=== PATIENT | female | born 1980 | race Caucasian/White ===

== ENCOUNTER 2021-02-02 15:44 | Emergency (ER) | payer OTHER, SELFPAY ==
[2021-02-02 15:46] VITALS: BP 126/78; PULSE 68; RESP 18; TEMP 36.8; O2SAT 97; BMI 26.6
--- NOTE | 2021-02-02 16:07 | US_ITS ---
PROCEDURE INFORMATION: Exam: US Pelvis, Transvaginal Exam date and time: 02/02/2021 4:07 PM Age: 40 years old Clinical indication: Prior surgery; Surgery date: 6+ months; Surgery type: Ablasion; Patient HX: Pelvic pain with abnormal uterine bleeding TECHNIQUE: Imaging protocol: Real-time transvaginal pelvic ultrasound with image documentation. Transvaginal imaging was used for better evaluation of the endometrium, adnexa, and/or cervix. COMPARISON: 1. ABDPELW/O CT ABD PELVIS W/O CONTRAST 02/07/2014 3:13 PM 2. No other comparison studies were made available at the time of interpretation. FINDINGS: Uterus/cervix: The uterus is anteverted and measures 7.5 x 4.1 x 4.5 cm. 1.3 x 0.4 x 0.9 cm and 1.3 x 0.6 x 1.0 cm anechoic structures without associated vascularity based on color Doppler imaging located in the lower uterine segment/cervix, likely reflecting nabothian cysts. The endometrium is normal in thickness, measuring 8.6 mm in thickness. Slightly heterogenous echotexture of the endometrium including anechoic foci, likely reflecting tiny cystic spaces. Right adnexa: The right ovary measures 2.7 x 1.3 x 1.9 cm and demonstrates ovarian follicles. Vascularity of the ovary is present based on color Doppler imaging. Left adnexa: The left ovary measures 2.5 x 1.2 x 1.9 cm and demonstrates ovarian follicles. Vascularity of the ovary is present based on color Doppler imaging. Urinary bladder: Empty urinary bladder, not evaluated on this ultrasound examination. Intraperitoneal space: No free fluid in the visualized field of view. IMPRESSION: Slightly heterogenous echotexture of the endometrium including anechoic foci, likely reflecting tiny cystic spaces. Pelvic ultrasound follow-up is recommended in 6-12 weeks. Other findings noted above. The interpretation of this study is based on the receipt of a total image number of 291.
--- NOTE | 2021-02-02 16:27 | [facility].EDGENADL ---
ED Disposition Clinical Impression: Abnormal uterine bleeding, Pelvic pain Disposition: Home, Self-Care Condition on Discharge: Good Additional Instructions: Return to the emergency department with any new, changing, or worsening symptoms. Follow-up with your APPLICATION DEVELOPMENT INTERN on Friday. Referrals: Carlos Charles MD [Primary Care Provider] - Arslan Talley MD [Staff Physician] - - Critical Care Critical Care Time: No Attestation: On 02/02/21, the high probability of a clinically significant, sudden or life threatening deterioration of the following system(s) required my full and direct attention, intervention and personal management. The time I documented below is in addition to time spent performing reported procedures but includes the following listed in this critical care notation. Medical Decision Making - Medical Records Medical records reviewed: Yes: I reviewed the patient's medical records. - Isac Inquiry Pt receiving controlled substance: No Vital Signs: 02/02/21 15:46 Temperature 98.3 F Temperature Source Oral Pulse Rate [Right Radial] 68 Respiratory Rate 18 Blood Pressure [Right Arm] 126/78 Blood Pressure Mean [Right Arm] 94 Blood Pressure Source [Right Arm] Automatic Cuff Blood Pressure Position [Right Arm] Sitting 02 Sat by Pulse Oximetry 97 Oxygen Delivery Method Room Air - Lab Data Lab Results 02/02/21 16:34: WBC 9.6, RBC 4.52, Hgb 13.6, Hct 40.3, MCV 89.3, MCH 30.2, MCHC 33.8, RDW 13.8, Plt Count 243, MPV 7.7, Neut % (Auto) 68.8, Lymph % (Auto) 22.9, [place] % (Auto) 5.3, Eos % (Auto) 2.3, Baso % (Auto) 0.6, Neut # (Auto) 6.6, Lymph # (Auto) 2.2, [place] # (Auto) 0.5, Eos # (Auto) 0.2, Baso # (Auto) 0.1 02/02/21 16:34: PT 10.7, INR 0.90, APTT 29.0 02/02/21 16:34: Sodium 142, Potassium 3.9, Chloride 109 H, Carbon Dioxide 26, Anion Gap 10.9, BUN 5 L, Creatinine 0.60, Estimated Creat Clear 146, Estimated GFR 112, Est GFR ( Amer) 135, Glucose 106 H, Calcium 8.8, Total Bilirubin 0.2, AST 25, ALT 28, Alkaline Phosphatase 76, Total Protein 7.7, Albumin 4.3, Globulin 3.4 H, Albumin/Globulin Ratio 1.3 02/02/21 16:34: Lactate 0.9 02/02/21 16:34: Serum HCG, Qual Negative Result diagrams: 02/02/21 16:34 02/02/21 16:34 Orders (Tests/Meds): ED MEDICATIONS Discontinued Medications Generic Name Dose Route Start Last Admin Trade Name Nj PRN Reason Stop Dose Admin Acetaminophen 1,000 mg 02/02/21 16:08 02/02/21 17:05 Acetaminophen 500mg Tab PO 02/02/21 16:09 1,000 mg ONCE ONE Administration Lactated Ringer's 1,000 mls @ 999 mls/hr 02/02/21 16:15 02/02/21 17:05 Lactated Ringer's 1000 Ml Bag IV 02/02/21 17:15 999 mls/hr .Q1H1M JADE Administration Morphine Sulfate 4 mg 02/02/21 16:08 02/02/21 16:41 Morphine 2mg/Ml Syringe IV 02/02/21 16:09 4 mg ONCE ONE Administration Ondansetron HCl 4 mg 02/02/21 16:41 02/02/21 16:42 Ondansetron 4mg/2ml Vial IV 02/02/21 16:42 4 mg ONCE ONE Administration ORDERS Category Date Time Status US transvaginal Stat Exams 02/02/21 16:07 Taken Medical Decision Narrative: Patient hemodynamically stable on arrival nontoxic appearance. Differential includes was not noted to , ectopic , uterine ablation, abnormal uterine bleeding. Given the patient's this exam plan obtain test, basic labs, CBC, CMP, transvaginal ultrasound and reassess. Patient's lab work-up grossly normal. No anemia. Negative test at this time. We obtained a transvaginal ultrasound. Afterwards I speak with the master technician. Patient had tiny cystic areas in the lower uterus but had a great flow to both ovaries with no cyst on either ovary. I am unsure of the exact cause of the patient's abnormal uterine bleeding at this time. I believe this likely could be due to her menstrual period although she did have an ablation 10 years ago. Patient is otherwise hemodynamically stable in the emergency department here and we
[2021-02-02 16:52] LABS: Potassium 3.9 mmoL/L (3.5-5.1); Sodium 142 mmol/L (136-145)
[2021-02-02 16:53] LABS: Basophils # 0.1 K/mm3 (0-0.2); Basophils % 0.6 % (0.1-2.0); Chloride 109 mmol/L (98-107); Eosinophils # 0.2 K/mm3 (0.0-0.4); Eosinophils % 2.3 % (0.1-12.0); Hematocrit 40.3 % (37.0-47.0); Hemoglobin 13.6 g/dL (12.2-16.2); Lymphocytes # 2.2 K/mm3 (0.7-4.5); Lymphocytes % 22.9 % (10-50); Mean Corpuscular HGB Conc 33.8 g/dL (31.8-35.4); Mean Corpuscular Hemoglobin 30.2 pg (27.0-31.2); Mean Corpuscular Volume 89.3 fl (81-99); Mean Platelet Volume 7.7 fl (7.4-10.4); Monocytes # 0.5 K/mm3 (0.1-1.0); Monocytes % 5.3 % (1.7-9.3); Neutrophils # 6.6 K/mm3 (1.8-7.8); Neutrophils % 68.8 % (37.0-80.0); Platelet Count 243 K/mm3 (142-424); Red Blood Count 4.52 M/mm3 (4.20-5.40); Red Cell Distribution Width 13.8 % (11.5-17.5); White Blood Count 9.6 K/mm3 (4.8-10.8)
[2021-02-02 16:55] LABS: Alanine Aminotransferase 28 U/L (12-78); Albumin Level 4.3 g/dl (3.5-5.0); Albumin/Globulin Ratio 1.3 (1.1-1.8); Alkaline Phosphatase 76 U/L (38-126); Anion Gap 10.9 mEq/L (5-15); Aspartate Amino Transferase 25 U/L (14-36); Bilirubin,Total 0.2 mg/dl (0.2-1.3); Blood Urea Nitrogen 5 mg/dl (7-17); Calcium 8.8 mg/dl (8.4-10.2); Carbon Dioxide 26 mmol/L (22.0-30.0); Creatinine Clearance Estimated 146 mL/min (50-200); Estimated Glomerular Filt Rate 112 ml/min (>60); GFR (African American) 135 ML/MIN (>60); Globulin 3.4 g/dL (1.3-3.2); Glucose 106 mg/dl (74-100); HCG Qualitative, Serum Negative (Negative); Lactic Acid 0.9 mmol/L (0.7-2.1); Total Protein,Serum 7.7 g/dl (6.3-8.2)
[2021-02-02 16:59] LABS: Prothrombin Time 10.7 seconds (10.1-12.5)
[2021-02-02 18:15] VITALS: BP 136/74; PULSE 72; RESP 16; TEMP 36.6; O2SAT 98
== END 2021-02-02 18:16 | disposition home or self-care (01) ==
PROVIDERS: Emergency Provider Emergency Medicine; PCP Family Medicine
DX: N93.8 Other specified abnormal uterine and vaginal bleeding (principal); R10.2 Pelvic and perineal pain; F41.9 Anxiety disorder, unspecified; F17.210 Nicotine dependence, cigarettes, uncomplicated
CPT/HCPCS: 76830; 80053; 83605; 84703; 85025; 85610; 85730; 96365; 96375; 99282; 99283; J2405

== ENCOUNTER 2025-04-20 15:27 | Emergency (ER) | payer OTHER, SELFPAY ==
[2025-04-20] VITALS (9 sets, daily range): BP systolic 94–150; BP diastolic 59–101; PULSE 57–79; RESP 11–20; TEMP 36.7–36.8; O2SAT 91–100; BMI 23.3
--- NOTE | 2025-04-20 15:28 | XR_ITS ---
PROCEDURE INFORMATION: Exam: XR Chest Exam date and time: 04/20/2025 3:57 PM Age: 44 years old Clinical indication: Shortness of breath; Additional info: SOA and cp TECHNIQUE: Imaging protocol: Radiologic exam of the chest. Views: 1 view. Total images: 1 COMPARISON: CR SHOULDCMLT XR shoulder LT min 2V 05/28/2018 9:56 AM FINDINGS: Lungs: Atelectatic/bronchiectatic changes noted within both lung bases. No discrete pneumonia. Pleural spaces: No pleural effusion. No pneumothorax. Heart/Mediastinum: No cardiomegaly. Bones/joints: Unremarkable. IMPRESSION: 1. Atelectatic/bronchiectatic changes noted within both lung bases. 2. No discrete pneumonia.
--- NOTE | 2025-04-20 15:30 | ECG_ITS ---
APPROVED REPORT Exam: Resting ECG HR:70 bpm ECG Measurements Heart Rate 70 AXES VA 126 P 45 QRSd 109 QRS 87 QT 401 T 46 QTc 421 Conclusion SINUS RHYTHM INCOMPLETE RIGHT BUNDLE BRANCH BLOCK [90+ ms QRS DURATION, TERMINAL R IN V1/V2, 40+ ms S IN I/aVL/V4/V5/V6] BORDERLINE ECG Electronically signed by : LUIS MANUEL MASCORRO, 04/21/2025 09:19:42
--- NOTE | 2025-04-20 15:35 | ED_ITS ---
<Statement entered by Marianne Barnett DO - 04/21/25 16:36> I was consulted by the VIKTORIA, and we discussed the complexity of problems being addressed. I approve the treatment and management plan for this patient's care in the emergency department, thus performing a substantial portion of the medical decision making. Marianne Barnett DO Discharge Plan Disposition Patient Disposition: Home, Self-Care Condition: Good Prescriptions Prescriptions: No Action No Known Home Medications Referrals Follow up/Referrals: Provider,Kandi, [Referring, Medical] - See instructions Pradeep Hollis MD [Staff Physician, Cardiology] - See instructions Activity Restrictions/Add. Instructions Additional Instructions/Restrictions: Please return to the emergency department with any worsening signs or symptoms, please utilize ibuprofen and Tylenol as well as other anti-inflammatory medication as needed for symptomatic relief, please refrain from ibuprofen use tonight. 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 Clinical Impressions Clinical Impression: Pleurisy, Atypical chest pain Instructions Patient Instructions: DI for Pleurisy, DI for Atypical Chest Pain Print Language Print Language: Chinese Discharge ED Provider: Marianne Barnett General Adult HPI General Chief complaint: Chest Pain Stated complaint: Chest Pain Time Seen by Provider: 04/20/25 15:27 Mode of Arrival: Ambulatory Source of Information: Patient Limitations: No Limitations History of Present Illness HPI narrative: 44-year-old female presents to the emergency department with chest pain that started on 04/17/2025, was constant all day, left-sided chest, substernal nonradiating, with associated shortness of breath, patient states that she woke up Friday, 04/18 2025, and the pain was less, intense but still present, on Friday, the , her pain was nonexistent, patient states around 8 AM this morning she woke up and the pain reoccurred and thus prompted emergency department visit. At maximal pain is a 10 out of 10, currently a 8 out of 10, patient denies any nausea vomiting abdominal pain no constipation no diarrhea no hematuria melena hematochezia hematemesis, no fever no chills, does have chronic cough, patient is a current everyday smoker, denies alcohol or drug use, has no other relevant past medical history takes no medications daily at home. Initial triage vitals are unremarkable. Please note that above description of symptoms, in this electronic medical record under categorization of recalled from ER triage doctor by RN are reflective of an initial nursing assessment, however, is not reflective of my full history and physical exam that was personally taken and clarified. Consequentially, this preceding description of symptoms, which may include the patient's categorized chief complaint in the EMR, do not reflect my personal clinical impression, and the ultimate description of history of present illness and patient stated complaints should be deferred to this section of the note. Unless stated otherwise or congruent with this section of the note, additional signs, symptoms, or incongruence should be interpreted as inaccurate with my clinical impression. Onset (ago): day(s) Related Data Home Medications ?Medication ?Instructions ?Recorded ?Confirmed No Known Home Medications 03/05/2104/17 Allergies Allergy/AdvReac Type Severity Reaction Status Date / Time No Known Allergies Allergy Verified 03/05/21 10:48 [facility] Disclaimer: The information contained in this section may have been updated after the patient was seen, as this information can be updated by other users. Social History Smoking Status: Current every day smoker tobacco type: cigarettes packs per day: 1 alcohol intake: never substance use type: denies use current occupational status: other Travel in the last 8 weeks?: None Have you lived/traveled outside [place] in past 30 days?: No Contact w/someone who lives/traveled outside US past 30 days?: No Exposure to someone with infectious disease in past 14 days?: No Do you have a fever (greater than 100.4 F or 38 C)?: No Have you tested positive for COVID-19?: No Exposed to someone with COVID-19 in past 14 days?: No Do you have a sore throat?: No Do you have a cough?: No Do you have any weakness?: No Do you have any diarrhea?: No Are you experiencing any unusual bleeding?: No Do you have any muscle aches/pain?: No Do you have any abdominal pain?: No Are you experiencing loss of taste or smell?: No Other Medical History Have you received the Flu Vaccine for this season: No Have you received the Pneumonia Vaccine: No ROS Obtained: Yes All systems reviewed & no additional complaints except as documented Physical Exam General General appearance: alert and in no apparent distress Head Head exam: atraumatic and normocephalic Eye Eye exam: Present normal appearance, PERRL and EOMI Neck Neck exam: Present full ROM; Absent meningismus Chest Chest inspection: Present normal inspection, tenderness and other (Left-sided chest wall tenderness to palpation) Respiratory Respiratory exam: Absent respiratory distress, wheezes, stridor, accessory muscle use or prolonged expiratory phase Cardiovascular Cardiovascular exam: Present normal rhythm and other (Pulses equal and symmetric in bilateral upper and lower extremities) Abdominal Exam Abdominal exam: Absent distention, tenderness, guarding or rebound Extremities Exam Extremities exam: Absent edema Neurological Exam Neurological exam: Present alert Psychiatric Psychiatric exam: Present normal affect Skin Skin exam: Present warm and dry Medical Decision Making Medical Records Medical records reviewed: Yes I reviewed the patient's medical records. Screening: Per USPSTF and CDC recommendations, given the prevalence of disease in our region, it is our hospital?s policy to screen for HIV and viral Hepatitis for all patients aged 18 and over and those with ongoing risk factors. Isac Inquiry Pt receiving controlled substance: Yes Isac was queried for this patient: No Reason not queried -: Emergent pt cond-no time Risks and benefits of using a controlled substance: were discussed with pt by me Vital Signs: 04/20/25 15:42 04/20/25 15:56 04/20/25 16:00 Temperature 98.2 F Temperature Source Oral Pulse Rate 65 65 Pulse Rate [Apical] 76 Respiratory Rate 18 15 19 Blood Pressure 122/79 119/81 Blood Pressure [Right Arm] 150/101 H Blood Pressure Mean [Right Arm] 117 Blood Pressure Source [Right Arm] Automatic Cuff Blood Pressure Position [Right Arm] Supine 02 Sat by Pulse Oximetry 100 98 97 Oxygen Delivery Method Room Air Room Air Room Air 04/20/25 16:31 04/20/25 17:01 04/20/25 17:36 Temperature Temperature Source Pulse Rate 64 79 61 Pulse Rate [Apical] Respiratory Rate 12 11 L 15 Blood Pressure 100/59 L 119/78 110/70 Blood Pressure [Right Arm] Blood Pressure Mean [Right Arm] Blood Pressure Source [Right Arm] Blood Pressure Position [Right Arm] 02 Sat by Pulse Oximetry 97 91 L 98 Oxygen Delivery Method Room Air Room Air Room Air 04/20/25 18:00 04/20/25 18:30 Temperature Temperature Source Pulse Rate 57 L 60 Pulse Rate [Apical] Respiratory Rate 16 13 Blood Pressure 94/60 L 113/65 Blood Pressure [Right Arm] Blood Pressure Mean [Right Arm] Blood Pressure Source [Right Arm] Blood Pressure Position [Right Arm] 02 Sat by Pulse Oximetry 98 98 Oxygen Delivery Method Room Air Room Air Lab Data Lab results reviewed: Yes I reviewed the patient's lab results. Lab Results 04/20/25 15:40: WBC 9.7, RBC 4.55, Hgb 14.0, Hct 41.0, MCV 90.1, MCH 30.8, MCHC 34.1, RDW 13.2, Plt Count 230, MPV 9.4, Neut % (Auto) 64.3, Lymph % (Auto) 27.0, [place] % (Auto) 6.5, Eos % (Auto) 1.3, Baso % (Auto) 0.7, Neut # (Auto) 6.3, Lymph # (Auto) 2.6, [place] # (Auto) 0.6, Eos # (Auto) 0.1, Baso # (Auto) 0.1, PT 11.0, INR 0.99, D-Dimer 0.75 H, Sodium 138, Potassium 3.8, Chloride 107, Carbon Dioxide 24, Anion Gap 10.8, BUN 11, Creatinine 0.60, Estimated Creat Clear 122, Estimated GFR 110, Est GFR ( Amer) 133, Glucose 118 H, Calcium 9.0, Magnesium 2.1, Total Bilirubin 0.6, AST 27, ALT 23, Alkaline Phosphatase 55, Troponin I < 0.01, NT-Pro-B Natriuret Pep 102, Total Protein 7.6, Albumin 4.4, Globulin 3.2, Albumin/Globulin Ratio 1.4, Lipase 167, Urine HCG, Qual Negative 04/20/25 15:40 04/20/25 15:40 Orders (Tests/Meds): ED MEDICATIONS Discontinued Medications Generic Name Dose Route Start Last Admin Trade Name Freq PRN Reason Stop Dose Admin Aspirin 324 mg 04/20/25 15:41 04/20/25 15:59 Aspirin 81mg Chewable Tablet PO 04/20/25 15:42 324 mg ONCE ONE Administration Hydromorphone HCl 0.5 mg 04/20/25 17:10 04/20/25 17:16 Hydromorphone 2mg/Ml Syringe IV 04/20/25 17:11 0.5 mg ONCE ONE Administration Iopamidol 80 ml 04/20/25 16:53 04/20/25 16:56 Iopamidol-370 (76%);100ml Bottle IV 04/20/25 16:54 80 ml ONCE ONE Administration Morphine Sulfate 4 mg 04/20/25 15:43 04/20/25 15:59 Morphine 4mg/Ml Syringe IV 04/20/25 15:44 4 mg ONCE ONE Administration Nitroglycerin 0.4 mg 04/20/25 15:43 04/20/25 15:59 Nitroglycerin 0.4mg Sl Tablet SL 04/20/25 15:44 0.4 mg ONCE ONE Administration Ondansetron HCl 4 mg 04/20/25 15:43 04/20/25 15:59 Ondansetron 4mg/2ml Vial IV 04/20/25 15:44 4 mg ONCE ONE Administration Sodium Chloride 10 ml 04/20/25 16:53 04/20/25 16:56 0.9 % Sodium Chloride 50 Ml Vial IV 04/20/25 16:54 10 ml ONCE ONE Administration ORDERS Category Date Time Status CT angio chest PE protocol Stat Cat Scan 04/20/25 16:31 Completed XR chest portable Stat Exams 04/20/25 15:28 Completed Complete Blood Count Auto Diff Stat Lab 04/20/25 15:40 Completed Comprehensive Metabolic Panel Stat Lab 04/20/25 15:40 Completed D-Dimer Stat Lab 04/20/25 15:40 Completed HIV Combo Stat Lab 04/20/25 15:50 Ordered Hepatitis C Ab Qual. W/ RFX Stat Lab 04/20/25 15:50 Ordered Lipase Stat Lab 04/20/25 15:40 Completed Magnesium Stat Lab 04/20/25 15:40 Completed NT Pro Brain Natriuretic Pep. Stat Lab 04/20/25 15:40 Completed PT INR [Prothrombin Time INR] Stat Lab 04/20/25 15:40 Completed Troponin I Stat Lab 04/20/25 15:40 Completed Urine , HCG Qual. Stat Lab 04/20/25 15:40 Completed Medical Decision Narrative: 44-year-old female presents emergency department with chest pain shortness of breath, that is waxed and wanes over the last couple of days, differential diagnose include but not limited to, ACS, cardiac arrhythmia, electrolyte disturbance, gastritis, GERD, panic attack, anxiety reaction, pneumothorax, pneumonia, PE, among others. I discussed the patient's case with the attending physician Dr. Anibal Will obtain basic laboratory studies PT/INR, D-dimer, chest x-ray, EKG, will give 324 mg p.o. aspirin for pain, obtain troponin, proBNP, will give 4 mg IV morphine for pain, and 4 mg IV Zofran for nausea, will give 0.4 mg sublingual nitroglycerin, Magnesium, lipase level. CBC unremarkable hcg qualitative is negative Coags within normal limit CMP unremarkable Lipase within normal limits proBNP within normal limits. Troponin is less than 0.01 I reviewed the patient's chest x-ray along the corresponding radiological report, atelectasis bronchitic changes noted in both lung bases no discrete pneumonia D-dimer is mildly elevated at 0.75, thus obtain CTA chest with and without contrast PE protocol. I was notified by nursing staff at approximately 5:08 PM the patient is still complaining of quite significant pain, thus will give 0.5 IV Dilaudid for pain. I discussed this patient's case with the reading radiologist Dr. Gomez at 7:09 PM, he states that the recon images have not fully crossed over the patient's CTA chest, however per his read it is negative report to be released soon. I reviewed the patient's CTA chest without contrast PE protocol, no CT evidence for pulmonary emboli main pulmonary artery is normal in caliber heart size is normal no pericardial effusion ascending and descending thoracic aorta appear unremarkable no pleural effusion or pneumothorax no focal airspace saltation within the right and left lung no suspicious mass or pulmonary nodule. I discussed these results with the patient family bedside patient and family are in agreement with current treatment plan/discharge plan. Heart score of 1, most likely pleurisy versus costochondritis, patient was given strict ED return precautions. Patient voiced understanding and agreed with current treatment plan/discharge plan, will give 15 mg IV Toradol for symptomatic relief upon discharge. Recommend ibuprofen Tylenol as needed, refrain from utilizing a Profen today. Patient voiced understanding and agreement with current treatment plan/discharge plan. Critical Care Critical Care Time Critical Care Time: No
[2025-04-20 15:48] LABS: Hematocrit 41.0 % (37.0-47.0); Hemoglobin 14.0 g/dL (12.2-16.2); Immature Granulocytes % 0.2 %; Mean Corpuscular HGB Conc 34.1 g/dL (31.8-35.4); Mean Corpuscular Hemoglobin 30.8 pg (27.0-31.2); Mean Corpuscular Volume 90.1 fl (81-99); Nucleated Red Blood Cells % 0 %; Platelet Count 230 K/mm3 (142-424); Red Blood Count 4.55 M/mm3 (4.20-5.40); Red Cell Distribution Width-SD 43.4 fL; White Blood Count 9.7 K/mm3 (4.8-10.8)
--- NOTE | 2025-04-20 15:58 | PC.NURSE ---
XR AT BEDSIDE
[2025-04-20] MEDS: ONDANSETRON 4MG/2ML VIAL 4 MG IV (15:59)
[2025-04-20] MEDS: MORPHINE 4MG/ML SYRINGE 4 MG IV (15:59)
[2025-04-20] MEDS: ASPIRIN 81MG CHEWABLE TABLET 324 MG PO (15:59)
[2025-04-20] MEDS: NITROGLYCERIN 0.4MG SL TABLET 0.4 MG SL (15:59)
--- OUTSIDE RECORDS SUMMARY | 2025-04-20 16:00 | XMS_ITS | Clinical Summary ---
Author Organization [facility] Address [address] [place] [address] Phone Care Team Providers Care Auto Fleet Maintenance Manager Name Role Phone Jose Armando Orozco MD Primary Care Provider Allergies Active Allergy Reactions Criticality Noted Date Comments No Known Allergies 01/12/2011 Medications ALPRAZolam (XANAX) 0.5 mg tablet Take by mouth 3 times daily. Active sodium chloride (SODIUM CHLORIDE) 0.65 % nasal spray 2 Sprays by Nasal route 4 times daily. 3 Active Additional Information Patient not taking.Reported on 04/12/2016 oxyCODONE-aceta minophen (PERCOCET) 5-325 mg Oral Tablet Take 1 Tab by mouth every 6 hours as needed for Pain. 25 Tab 6 Active Additional Information Patient not taking.Reported on 02/19/2018 budesonide (ENTOCORT EC) 3 mg Oral Capsule, Delayed & Ext.Release Take 3 Caps by mouth daily. 90 Cap 6 Active Additional Information Patient not taking.Reported on 02/19/2018 acetaminophen 325 mg Oral TabIndications: pain Take 325 mg by mouth every 4 hours as needed for Pain. Active Active Problems Problem Noted Date Diagnosed Date Colitis 04/12/2016 Closed displaced fracture of middle phalanx of left little finger 01/17/2015 Surgical History Surgery Date Site/Laterality Comments BREAST SURGERY 12-07-09 EXCISION OF RIGHT BREAST MASS TUBAL LIGATION ENDOMETRIAL ABLATION CERVIX SURGERY NOSE SURGERY x2 ADENOIDECTOMY NASAL SINUS SURGERY 06/15/2013 Left NASAL ENDOSCOPY WITH EXCISIONAL BIOPSY OF LEFT NASAL MASS ; Surgeon: Vaibhav Armstrong MD; Location: [facility]; Service: ENT FINGER CLOSED REDUCTION 01/17/2015 Finger/Left LEFT SMALL FINGER MIDDLE PHALANX CLOSED REDUCTION PERCUTANEOUS PINNING; Surgeon: Sam Morales MD; [facility]; Service: Hand Medical devices from this surgery are in the Medical Devices section. COLONOSCOPY Medical History Medical History Date Comments Headache Anxiety Family History Medical History Relation Name Comments Anesth Problems Neg Hx Social History Tobacco Use Types Packs/Day Years Used Date Smoking Tobacco: Every Day Cigarettes 2 15 Smokeless Tobacco: Never Tobacco Cessation:Ready to Q uit: No Comments:pt refused all cessation Alcohol Use Standard Drinks/Week Comments Yes 0 (1 standard drink = 0.6 oz pur e alcohol) occasionally Sexually Active Control Partners Comments Yes Male Comments No Sex and Gender Information Value Date Recorded Sex Assigned at Not on file Legal Sex Female 8:35 PM EDT Gender Identity Not on file Sexual Orientation Not on file Obstetrics History Para Term AB IAB SAB Ectopic Multiple Livin g Live Births 2 2 Date Outcome GA Total Labor Labor/2nd/3rd Weight Sex Type Anes PTL Kami A1 A5 Name Clin Para Para Last Filed Vital Signs Vital Sign Reading Time Taken Comments Blood Pressure 119/79 02/19/2018 2:28 PM EDT Pulse 101 02/19/2018 1:14 PM EDT Temperature 36.9 C (98.4 F) 02/19/2018 1:14 PM EDT Respiratory Rate 24 02/19/2018 1:14 PM EDT Oxygen Saturation 100% 02/19/2018 2:28 PM EDT Inhaled Oxygen Concentration - - Weight 58.1 kg (128 lb) 02/19/2018 1:14 PM EDT Height 165.1 cm (5' 5 ) 02/19/2018 1:14 PM EDT Body Mass Index 21.3 02/19/2018 1:14 PM EDT Plan of Treatment Health Maintenance Due Date Last Done Comments Annual Wellness Exam 1985 DTaP/TDaP/Td (1 - Tdap) 2001 Hepatitis B Vaccine (1 of 3 - 19+ 3-dose series) 2001 Cervical Cancer Screening 2003 Pap Smear 2003 HPV/Pap Cotest 2012 Breast Cancer Screening 2022 COVID-19 Vaccine (1 - 2023-2 5 season) 2025 Influenza Vaccine (#1) 2025 Meningococcal B Vaccine Aged Out No l onger eligible based on patient's age to complete this topic Pneumococcal Vaccine 0-49 Aged Out No longer eligible based on patient's age to complete this topic Medical Devices Implanted Type Area Embroidery Designer Device Identifier Shelf Expiration Date Model / Serial / Lot K-Wire .045 - [id number] Implanted:Qty: 1 on 01/17/2015 by Sam Morales MD at [facility] Left: Finger ACUMED 11/24/2018 -[id number] / / [id number] [facility] [employer] [facility] [place] [address] * Guarantor: Nan Cobb Account Type Relation to Patient Date of Phone Billing Address [place] Personal Family Self Advance Directives For more information, please contact: [phone] * Full Code (Latest Code Status on File) Date Activated Date Inactivated Comments 04/14/2016 11:56 AM 04/15/2016 4:10 PM Care Teams Auto Fleet Maintenance Manager Relationship Specialty Start Date End Date Jose Armando Orozco MD [address] [address] PCP - General Family Medicine 06/11/13
[2025-04-20 16:01] LABS: Albumin Level 4.4 g/dl (3.5-5.0); Chloride 107 mmol/L (98-107)
[2025-04-20 16:02] LABS: Potassium 3.8 mmoL/L (3.5-5.1); Sodium 138 mmol/L (136-145); Urine Pregnancy, HCG Qual. Negative (Negative)
[2025-04-20 16:03] LABS: INR 0.99 (0.9-1.1); Prothrombin Time 11.0 seconds (10.1-12.5)
[2025-04-20 16:04] LABS: Alanine Aminotransferase 23 U/L (12-78); Alkaline Phosphatase 55 U/L (38-126); Anion Gap 10.8 mEq/L (5-15); Aspartate Amino Transferase 27 U/L (14-36); Bilirubin,Total 0.6 mg/dl (0.2-1.3); Blood Urea Nitrogen 11 mg/dl (7-17); Carbon Dioxide 24 mmol/L (22.0-30.0); Creatinine Clearance Estimated 122 mL/min (50-200); Creatinine,Serum 0.60 mg/dl (0.52-1.04); Estimated Glomerular Filt Rate 110 ml/min (>60); GFR (African American) 133 ML/MIN (>60)
[2025-04-20 16:05] LABS: Albumin/Globulin Ratio 1.4 (1.1-1.8); Calcium 9.0 mg/dl (8.4-10.2); Globulin 3.2 g/dL (1.3-3.2); Glucose 118 mg/dl (74-100); Lipase 167 U/L (23-300); Magnesium 2.1 mg/dl (1.6-2.3); Total Protein,Serum 7.6 g/dl (6.3-8.2)
[2025-04-20 16:14] LABS: NT Pro Brain Natriuretic Pep. 102 pg/mL (0-125)
[2025-04-20 16:19] LABS: Troponin I < 0.01 ng/ml (0.00-0.034)
[2025-04-20 16:28] LABS: D-Dimer 0.75 ug/mL (0.0-0.5)
--- NOTE | 2025-04-20 16:31 | CT_ITS ---
PROCEDURE INFORMATION: Exam: CTA Chest With Contrast Exam date and time: 04/20/2025 4:49 PM Age: 44 years old Clinical indication: Chest wall pain; Additional info: SOA, left-sided chest pain TECHNIQUE: Imaging protocol: Computed tomographic angiography of the chest with contrast. Exam focused on the arteries. 3D rendering (Not supervised by radiologist): MIP and/or 3D reconstructed images were created by the technologist. Radiation optimization: All CT scans at this facility use at least one of these dose optimization techniques: automated exposure control; mA and/or kV adjustment per patient size (includes targeted exams where dose is matched to clinical indication); or iterative reconstruction. Contrast material: ISOVUE 370; Contrast volume: 80 ml; Contrast route: INTRAVENOUS (IV); COMPARISON: CR XR CHEST PORTABLE 04/20/2025 3:57 PM FINDINGS: Pulmonary arteries: No CT evidence for central or segmental pulmonary embolism. Main pulmonary artery is normal in caliber. Aorta: Normal caliber of the ascending and descending thoracic aorta. No evidence for dissection. Early timing of the contrast bolus does limit evaluation. Visualized portion of the upper abdominal aorta appears unremarkable. Thyroid: Thyroid gland appears unremarkable. Trachea: Trachea is midline in position. Central airways are clear. No significant bronchiectasis. Lungs: 2 mm benign calcified granuloma within the superior segment of the right lower lobe. Minimal dependent atelectatic changes are present bilaterally. No suspicious pulmonary nodule or mass. No airspace consolidation. Pleural spaces: No pleural effusion. No pneumothorax. Heart: Heart size is normal. No pericardial effusion. Lymph nodes: There are no enlarged supraclavicular lymph nodes. There are no enlarged mediastinal lymph nodes. There is fullness of the intrapulmonary lymphoid tissue at the right and left hilum which is nonspecific. No hilar mass. Liver: There is some reflux of contrast material into the intrahepatic segment of the inferior vena cava and hepatic veins. This is somewhat nonspecific but can be seen in the setting of some degree of right heart failure. Intraperitoneal space: The remainder of the visualized structures within the upper abdomen appear unremarkable. Bones/joints: No suspicious lytic or sclerotic bone lesion. Mild scoliosis. Mild degenerative changes are present throughout the spine. No acute fracture. Soft tissues: No axillary mass or lymphadenopathy. IMPRESSION: 1. No CT evidence for pulmonary embolism. Main pulmonary artery is normal in caliber. 2. Heart size is normal. No pericardial effusion. Ascending and descending thoracic aorta appear unremarkable. No pleural effusion or pneumothorax. 3. No focal airspace consolidation within the right and left lung. No suspicious pulmonary nodule or mass. Findings were discussed with Hussein Peterson at 04/20/2025 7:10 PM EDT.
[2025-04-20] MEDS: 0.9 % SODIUM CHLORIDE 50 ML VIAL 10 ML IV (16:56)
[2025-04-20] MEDS: IOPAMIDOL-370 (76%);100ML BOTTLE 80 ML IV (16:56)
--- NOTE | 2025-04-20 17:00 | PC.NURSE ---
pt returned from ct
[2025-04-20] MEDS: HYDROMORPHONE 2MG/ML SYRINGE 0.5 MG IV (17:16)
--- NOTE | 2025-04-20 18:35 | PC.NURSE ---
Spoke w/ Rad about CTA reading, they are currently messaging [facility]
--- NOTE | 2025-04-20 19:09 | PC.NURSE ---
Provider speaking to NILO
[2025-04-20] MEDS: KETOROLAC 30MG/ML VIAL 15 MG IM (19:34)
[2025-04-20 22:37] LABS: Hepatitis C Ab Qual. W/ RFX NEGATIVE (Negative)
== END 2025-04-20 19:39 | disposition home or self-care (01) ==
PROVIDERS: Physician Assistant; Emergency Provider Student in an Organized Health Care Education/Training Program; PCP Family Medicine
DX: R09.1 Pleurisy (principal); R07.89 Other chest pain; R06.02 Shortness of breath; F17.210 Nicotine dependence, cigarettes, uncomplicated
CPT/HCPCS: 71045; 71275; 80053; 81025; 83690; 83735; 83880; 84484; 85025; 85378; 85610; 86803; 87389; 93005; 96374; 96375; 99285; J1171; J1885; J2270; J2405; Q9967